=== PATIENT | male | born 1965 | race Caucasian/White ===

== ENCOUNTER 2017-04-04 00:28 | Inpatient (IN) | payer MEDICAID, OTHER ==
[~2017-04-04] VITALS: Ht 193 cm; Wt 111.1 kg
[2017-04-04 01:12] LABS: Basophils # (auto) 0 uL; Eosinophils # (auto) 0.2 uL; Monocytes # (auto) 0.5 uL
[2017-04-04 01:14] LABS: Basophils % (auto) 0.7 % (0.0-2.0); Eosinophils % (auto) 3.1 % (0.0-7.0); Hematocrit 45.8 % (41.0-53.0); Hemoglobin 16.1 g/dL (13.5-17.5); Lymphocytes # (auto) 1.9 uL; Lymphocytes % (auto) 26.7 % (10.0-50.0); Mean Corpuscular Hemoglobin 37.5 pg (28.0-32.0); Mean Corpuscular Hgb Conc. 35.3 g/dL (32.0-36.0); Mean Corpuscular Volume 106.5 fL (80.0-100.0); Monocytes % (auto) 6.5 % (0.0-12.0); Neutrophils # (auto) 4.5 uL; Nucleated Red Blood Cells % 0.4 %; Platelet Count (auto) 113 10^3/uL (140-450); Red Cell Distribution Width 15.8 % (11.8-14.3); White Blood Cell 7.1 10^3/uL (4.4-10.8)
[2017-04-04 01:30] LABS: Albumin 3.4 g/dL (3.4-5.0); Anion Gap 14 (5-15); BUN/Creatinine Ratio 3.7; Blood Urea Nitrogen 4 mg/dL (7-18); Calcium 8.8 mg/dL (8.5-10.1); Carbon Dioxide 21 mmol/L (21-32); Chloride 102 mmol/L (98-107); GFR African American 92 mL/min; GFR Non-African American 76 mL/min; Glucose 159 mg/dL (74-106); Magnesium 1.9 mg/dL (1.6-2.6); Potassium 3.3 mmol/L (3.5-5.1); Sodium 137 mmol/L (136-145)
[2017-04-04 01:35] LABS: Alanine Aminotransferase 22 U/L (16-61); Alkaline Phosphatase 147 U/L (45-117); Aspartate Aminotransferase 70 U/L (15-37); Total Protein 7.8 g/dL (6.4-8.2)
[2017-04-04] MEDS ORDERED: POTASSIUM CHL 10% (20 MEQ/15ML) 15ml ORAL SOLN PO ONE (07:45)
[2017-04-04] MEDS ORDERED: LORazepam 2MG/ML-1ML VIAL IV ONE (07:45)
[2017-04-04] MEDS ORDERED: MORPHINE SULFATE 10 MG/ML INJ 1ML SDV IV PRN ×2 (08:15)
[2017-04-04] MEDS ORDERED: TEMAZEPAM 15 MG CAP PO PRN (08:15)
[2017-04-04] MEDS ORDERED: ACETAMINOPHEN 500 MG TAB PO PRN (08:15)
[2017-04-04] MEDS ORDERED: LACTULOSE 20Gm/30ML SOLN PO PRN (08:15)
[2017-04-04] MEDS ORDERED: PROMETHAZINE HCL 25 MG/ML 1ML IV PRN (08:15)
[2017-04-04] MEDS ORDERED: LORazepam 2MG/ML-1ML VIAL IV PRN (08:15)
[2017-04-04] MEDS ORDERED: NITROGLYCERIN 0.4 MG SL TAB SL PRN (08:15)
[2017-04-04] MEDS ORDERED: HYDROcodone-ACET 5/325MG TAB PO PRN (08:15)
[2017-04-04] MEDS ORDERED: LORazepam 0.5 MG TAB PO PRN (08:15)
[2017-04-04] MEDS: SODIUM CHLORIDE 0.9% 1,000 ML IV SCH ×2 (08:39→23:18)
[2017-04-04 08:44] LABS: INR 3.51 (0.9-1.15); Prothrombin Time 38.7 sec (9.37-12.3)
[2017-04-04] MEDS: LEVETIRACETAM 500 MG TAB PO SCH ×2 (10:33→23:15)
[2017-04-04] MEDS ORDERED: chlordiazePOXIDE HCL 25 MG CAP PO PRN (12:00)
[2017-04-04] MEDS ORDERED: THIAMINE HCL 100 MG/ML 2ML VIAL IV ONE (12:00)
[2017-04-04] MEDS: chlordiazePOXIDE HCL 5 MG CAP PO SCH ×2 (12:15→18:00)
[2017-04-04] MEDS ORDERED: amLODIPine BESYLATE 5 MG TAB PO ONE (12:15)
[2017-04-04] MEDS ORDERED: LISINOPRIL 10 MG TAB PO ONE (12:15)
[2017-04-04 15:40] VITALS: BP 125/93
[2017-04-04 22:00] VITALS: BP 111/76
[2017-04-05] MEDS: chlordiazePOXIDE HCL 5 MG CAP PO SCH ×3 (00:47→12:17)
[2017-04-05 04:20] LABS: Urine Bacteria NONE SEEN /hpf (None Seen); Urine Blood Negative /uL (Negative); Urine Mucus FEW (None Seen); Urine Specific Gravity 1.023 (1.001-1.035); Urine WBC 4 /hpf (0 - 3)
[2017-04-05 04:33] LABS: Alcohol, Urine < 3.0 mg/dL (0-5); Amphetamine Screen, Urine NEGATIVE (NEGATIVE); Barbiturate Scree,Urine NEGATIVE (NEGATIVE); Benzodiazephine Screen, Urine NEGATIVE (NEGATIVE); Cannabinoid Screen, Urine POSITIVE (NEGATIVE); Cocaine Screen, Urine NEGATIVE (NEGATIVE); Opiate Scree,Urine NEGATIVE (NEGATIVE); Phencyclidine Screen, Urine NEGATIVE (NEGATIVE)
[2017-04-05 05:45] VITALS: BP 104/70
[2017-04-05 07:20] LABS: Albumin 2.9 g/dL (3.4-5.0); BUN/Creatinine Ratio 6.1; Bilirubin, Total 2.7 mg/dL (0.2-1.0); Potassium 3.7 mmol/L (3.5-5.1); Total Protein 6.8 g/dL (6.4-8.2)
[2017-04-05 08:37] VITALS: BP 117/76
[2017-04-05] MEDS ORDERED: LISINOPRIL 10 MG TAB PO SCH (10:00)
[2017-04-05] MEDS ORDERED: amLODIPine BESYLATE 5 MG TAB PO SCH (10:00)
[2017-04-05] MEDS ORDERED: THIAMINE HCL 100 MG/ML 2ML VIAL IV SCH (10:00)
[2017-04-05] MEDS: LEVETIRACETAM 500 MG TAB PO SCH (10:36)
[2017-04-05] MEDS: SODIUM CHLORIDE 0.9% 1,000 ML IV SCH (10:55)
[2017-04-05] MEDS ORDERED: THIAMINE INJ 100 MG, MULTIPLE VITAMIN 10 ML, FOLIC ACID 1 MG, MAGNESIUM SULF SDV 50% 8 ... IV SCH ×5 (12:00)
[2017-04-05 13:00] VITALS: BP_SYST 107; BP_SYST 137; BP_DIAS 72; BP_DIAS 96
[2017-04-05] MEDS ORDERED: KEP500T PO (15:04)
[2017-04-05] MEDS ORDERED: AML5T PO (15:04)
[2017-04-05] MEDS ORDERED: WARPRX PO (15:04)
[2017-04-05] MEDS ORDERED: LACT10SO3 PO (15:04)
[2017-04-05 16:24] VITALS: BP 137/96
[2017-04-05 16:56] VITALS: BP 137/96
== END 2017-04-05 16:56 | disposition home or self-care (01) | DRG 53 ==
LOC: EDBD 00:28 → ER 00:28 → TELE 00:29 → TELE-WESTW 17:19 → TELE-CENTR 18:48
PROVIDERS: ADMIT Internal Medicine; ATTEND Nurse Practitioner Acute Care
DX: G40.89 Other seizures (principal); I10 Essential (primary) hypertension; E87.6 Hypokalemia; G47.00 Insomnia, unspecified; G47.10 Hypersomnia, unspecified; F41.9 Anxiety disorder, unspecified; R73.9 Hyperglycemia, unspecified; Z79.899 Other long term (current) drug therapy; Z86.711 Personal history of pulmonary embolism; Z86.718 Personal history of other venous thrombosis and embolism; Z86.73 Personal history of transient ischemic attack (TIA), and cerebral infarction without residual deficits; Z79.01 Long term (current) use of anticoagulants; Z88.0 Allergy status to penicillin
CPT/HCPCS: 36415; 70450; 70551; 71045; 80053; 80061; 80307; 81001; 83735; 84484; 85025; 85610; 85652; 85730; 93005; 95819; 96361; 96374

== ENCOUNTER 2017-07-18 06:46 | Inpatient (IN) | payer MEDICAID, OTHER ==
[~2017-07-18] VITALS: Ht 180.3 cm; Wt 90.4 kg
[~2017-07-18 06:46] MED LIST: AML5T PO; KEP500T PO; LACT10SO3 PO; WARPRX PO
[2017-07-18] MEDS ORDERED: SODIUM CHLORIDE 0.9% 1,000 ML IV ONE ×3 (06:54→11:00)
[2017-07-18] MEDS ORDERED: MIDAZOLAM HCL 1MG/1ML-2 ML VIAL IV ONE (07:00)
[2017-07-18] MEDS ORDERED: LORazepam 2MG/ML-1ML VIAL IV ONE (07:00)
[2017-07-18] MEDS ORDERED: ADENOSINE 6 MG/2 ML INJ IV ONE ×4 (07:14→07:45)
[2017-07-18 08:04] LABS: Basophils # (auto) 0.1 uL; Basophils % (auto) 0.4 % (0.0-2.0); Eosinophils # (auto) 0.1 uL; Eosinophils % (auto) 0.5 % (0.0-7.0); Hemoglobin 15.4 g/dL (13.5-17.5); Monocytes # (auto) 0.6 uL; Nucleated Red Blood Cells % 0.3 %
[2017-07-18 08:05] LABS: Hematocrit 45.6 % (41.0-53.0); Lymphocytes # (auto) 3.5 uL; Lymphocytes % (auto) 20.2 % (10.0-50.0); Mean Corpuscular Hemoglobin 36.4 pg (28.0-32.0); Mean Corpuscular Hgb Conc. 33.9 g/dL (32.0-36.0); Mean Corpuscular Volume 107.4 fL (80.0-100.0); Monocytes % (auto) 3.3 % (0.0-12.0); Neutrophils % (auto) 75.6 % (37.0-80.0); Platelet Count (auto) 182 10^3/uL (140-450); Red Blood Cells 4.24 10^6/uL (4.5-5.90); White Blood Cell 17.2 10^3/uL (4.4-10.8)
[2017-07-18] MEDS ORDERED: LORazepam 2MG/ML-1ML VIAL IV PRN ×2 (08:15→11:00)
[2017-07-18] MEDS ORDERED: METOPROLOL TARTRATE 1MG/1ML-5ML VIAL IV ONE (08:15)
[2017-07-18] MEDS ORDERED: chlordiazePOXIDE HCL 25 MG CAP PO PRN ×2 (08:15→11:00)
[2017-07-18] MEDS ORDERED: LEVETIRACETAM INJ 1,000 MG in D5W 5% 100 ML IV ONE (08:15)
[2017-07-18 08:16] LABS: INR 1.83 (0.9-1.15); Partial Thromboplastin Time 33.6 sec (22.64-33.71); Prothrombin Time 20.1 sec (9.37-12.3)
[2017-07-18 08:19] LABS: Alanine Aminotransferase 15 U/L (16-61); Albumin 3.8 g/dL (3.4-5.0); Anion Gap 20 (5-15); Aspartate Aminotransferase 39 U/L (15-37); BUN/Creatinine Ratio 5.1; Blood Urea Nitrogen 8 mg/dL (7-18); Calcium 8.6 mg/dL (8.5-10.1); Carbon Dioxide 16 mmol/L (21-32); Chloride 101 mmol/L (98-107); GFR African American 60 mL/min; GFR Non-African American 49 mL/min; Glucose 247 mg/dL (74-106); Potassium 3.4 mmol/L (3.5-5.1); Sodium 137 mmol/L (136-145)
[2017-07-18 08:22] LABS: Lactic Acid w/Reflex 13.2 mmol/L (0.4-2.0)
[2017-07-18 08:24] LABS: Alkaline Phosphatase 123 U/L (45-117); Bilirubin, Total 2.1 mg/dL (0.2-1.0); Total Protein 8.4 g/dL (6.4-8.2)
[2017-07-18] MEDS: THIAMINE INJ 100 MG, MULTIPLE VITAMIN 10 ML, FOLIC ACID 1 MG, MAGNESIUM SULF SDV 50% 8 ... IV SCH ×5 (08:58)
[2017-07-18] MEDS: LEVETIRACETAM INJ 500 MG in D5W 5% 100 ML IV SCH ×2 (10:16→22:42)
[2017-07-18] MEDS ORDERED: MORPHINE SULFATE 4 MG/ML SYR/VIAL IV PRN ×2 (11:00)
[2017-07-18] MEDS ORDERED: ACETAMINOPHEN 500 MG TAB PO PRN (11:00)
[2017-07-18] MEDS ORDERED: HYDROcodone-ACET 5/325MG TAB PO PRN (11:00)
[2017-07-18] MEDS ORDERED: DEXTROSE (50%) 50ML SYRG IV PRN (11:00)
[2017-07-18] MEDS ORDERED: THIAMINE 100mg/ml INJ (200mg/2ml VIAL) IV ONE (11:00)
[2017-07-18] MEDS ORDERED: NITROGLYCERIN 0.4 MG SL TAB SL PRN (11:00)
[2017-07-18] MEDS ORDERED: PROMETHAZINE HCL 25 MG/ML 1ML IV PRN (11:00)
[2017-07-18] MEDS: LEVETIRACETAM 500 MG TAB PO SCH ×2 (11:03→22:00)
[2017-07-18] MEDS ORDERED: PANTOPRAZOLE 40 MG TAB PO SCH (11:03)
[2017-07-18] MEDS: amLODIPine BESYLATE 5 MG TAB PO SCH (11:03)
[2017-07-18] MEDS: LACTULOSE 20Gm/30ML SOLN PO SCH (11:27)
[2017-07-18 11:30] LABS: Amylase 59 U/L (25-115); Lipase 138 U/L (73-393)
[2017-07-18] MEDS: POTASSIUM CHL 20MEQ/100ML 100 ML IV SCH ×2 (11:49→13:36)
[2017-07-18] MEDS: SOD CHL 0.9%/ KCL 20MEQ 1,000 ML IV SCH ×2 (11:49→20:26)
[2017-07-18] MEDS: ACCU-CHEK COMFORT CURVE STRIP VI SCH ×3 (12:00→20:30)
[2017-07-18] MEDS: InsuLIN REG 1unit/0.01ml Soln (100units/ml) SC SCH ×3 (12:00→20:30)
[2017-07-18] MEDS: chlordiazePOXIDE HCL 5 MG CAP PO SCH ×2 (12:00→18:16)
[2017-07-18] MEDS ORDERED: LABETALOL HCL 5 MG/ML ML 20ML VIAL IV PRN (12:30)
[2017-07-18] MEDS ORDERED: PANTOPRAZOLE 40 MG/10 ML VIAL IV ONE (13:00)
[2017-07-18] MEDS ORDERED: WARFARIN SODIUM 5 MG TAB PO ONE (17:00)
[2017-07-19] MEDS: chlordiazePOXIDE HCL 5 MG CAP PO SCH ×5 (00:27→23:28)
[2017-07-19] MEDS: ACCU-CHEK COMFORT CURVE STRIP VI SCH ×7 (00:47→23:29)
[2017-07-19] MEDS: InsuLIN REG 1unit/0.01ml Soln (100units/ml) SC SCH ×7 (00:47→23:33)
[2017-07-19] MEDS: SOD CHL 0.9%/ KCL 20MEQ 1,000 ML IV SCH ×3 (03:58→19:41)
[2017-07-19 05:54] LABS: Albumin 3.3 g/dL (3.4-5.0); BUN/Creatinine Ratio 7.1; Bilirubin, Total 2.5 mg/dL (0.2-1.0); Calcium 8.6 mg/dL (8.5-10.1); Potassium 4.3 mmol/L (3.5-5.1); Total Protein 7.2 g/dL (6.4-8.2)
[2017-07-19 05:55] LABS: INR 1.75 (0.9-1.15); Partial Thromboplastin Time 35.3 sec (22.64-33.71); Prothrombin Time 19.2 sec (9.37-12.3)
[2017-07-19 06:54] LABS: Basophils # (auto) 0 uL; Basophils % (auto) 0.1 % (0.0-2.0); Eosinophils # (auto) 0 uL; Hematocrit 37.5 % (41.0-53.0); Hemoglobin 13.2 g/dL (13.5-17.5); Mean Corpuscular Hgb Conc. 35.1 g/dL (32.0-36.0); Mean Corpuscular Volume 104.6 fL (80.0-100.0); Monocytes # (auto) 0.8 uL; Neutrophils # (auto) 6.6 uL; Nucleated Red Blood Cells % 0.1 %; Red Blood Cells 3.59 10^6/uL (4.5-5.90)
[2017-07-19 06:57] LABS: Lymphocytes # (auto) 0.9 uL; Lymphocytes % (auto) 11.1 % (10.0-50.0); Mean Corpuscular Hemoglobin 36.7 pg (28.0-32.0); Monocytes % (auto) 9.5 % (0.0-12.0); Neutrophils % (auto) 79.3 % (37.0-80.0); Red Cell Distribution Width 15.6 % (11.8-14.3); White Blood Cell 8.3 10^3/uL (4.4-10.8)
[2017-07-19 07:12] LABS: Platelet Count (auto) 63 10^3/uL (140-450)
[2017-07-19] MEDS: LACTULOSE 20Gm/30ML SOLN PO SCH (10:00)
[2017-07-19] MEDS: amLODIPine BESYLATE 5 MG TAB PO SCH (10:00)
[2017-07-19] MEDS: PANTOPRAZOLE 40 MG/10 ML VIAL IV SCH (10:28)
[2017-07-19] MEDS: THIAMINE 100mg/ml INJ (200mg/2ml VIAL) IV SCH (10:28)
[2017-07-19] MEDS: LEVETIRACETAM 500 MG TAB PO SCH ×2 (10:28→21:32)
[2017-07-19] MEDS: LEVETIRACETAM INJ 500 MG in D5W 5% 100 ML IV SCH (10:38)
[2017-07-19] MEDS: THIAMINE INJ 100 MG, MULTIPLE VITAMIN 10 ML, FOLIC ACID 1 MG, MAGNESIUM SULF SDV 50% 8 ... IV SCH ×5 (12:13)
[2017-07-19] MEDS: METOPROLOL TARTRATE 25 MG TAB PO SCH ×2 (14:00→21:31)
[2017-07-19 17:00] VITALS: BP 153/92
[2017-07-19] MEDS ORDERED: WARFARIN SODIUM 5 MG TAB PO ONE (17:00)
[2017-07-19] MEDS ORDERED: CITA-77 PO (18:25)
[2017-07-19] MEDS ORDERED: LISI10TA6 PO (18:25)
[2017-07-19 20:46] LABS: Urine Bacteria NONE SEEN /hpf (None Seen); Urine Blood Negative /uL (Negative); Urine Specific Gravity 1.007 (1.001-1.035); Urine WBC 1 /hpf (0 - 3)
[2017-07-19 20:58] LABS: Alcohol, Urine < 3.0 mg/dL (0-5); Amphetamine Screen, Urine NEGATIVE (NEGATIVE); Barbiturate Scree,Urine NEGATIVE (NEGATIVE); Benzodiazephine Screen, Urine POSITIVE (NEGATIVE); Cannabinoid Screen, Urine POSITIVE (NEGATIVE); Cocaine Screen, Urine NEGATIVE (NEGATIVE); Opiate Scree,Urine NEGATIVE (NEGATIVE); Phencyclidine Screen, Urine NEGATIVE (NEGATIVE)
[2017-07-19 22:23] VITALS: BP 139/96
[2017-07-20] MEDS: InsuLIN REG 1unit/0.01ml Soln (100units/ml) SC SCH ×3 (04:00→12:00)
[2017-07-20] MEDS: SOD CHL 0.9%/ KCL 20MEQ 1,000 ML IV SCH ×2 (04:18→13:00)
[2017-07-20] MEDS: ACCU-CHEK COMFORT CURVE STRIP VI SCH ×3 (04:18→12:22)
[2017-07-20 05:11] VITALS: BP 131/96
[2017-07-20] MEDS: chlordiazePOXIDE HCL 5 MG CAP PO SCH ×2 (05:52→12:16)
[2017-07-20 06:27] LABS: Basophils # (auto) 0 uL; Eosinophils # (auto) 0 uL; Hemoglobin 12.5 g/dL (13.5-17.5); Lymphocytes # (auto) 1.4 uL; Monocytes # (auto) 0.5 uL; Neutrophils # (auto) 3.3 uL; White Blood Cell 5.3 10^3/uL (4.4-10.8)
[2017-07-20 06:31] LABS: Basophils % (auto) 0.1 % (0.0-2.0); Eosinophils % (auto) 0.5 % (0.0-7.0); Hematocrit 35.3 % (41.0-53.0); Mean Corpuscular Hgb Conc. 35.4 g/dL (32.0-36.0); Mean Corpuscular Volume 104.4 fL (80.0-100.0); Monocytes % (auto) 9.8 % (0.0-12.0); Neutrophils % (auto) 63.6 % (37.0-80.0); Nucleated Red Blood Cells % 0.3 %; Platelet Count (auto) 57 10^3/uL (140-450); Red Blood Cells 3.38 10^6/uL (4.5-5.90); Red Cell Distribution Width 15.5 % (11.8-14.3)
[2017-07-20 06:41] LABS: INR 1.59 (0.9-1.15); Partial Thromboplastin Time 33.1 sec (22.64-33.71); Prothrombin Time 17.4 sec (9.37-12.3)
[2017-07-20 06:50] LABS: Potassium 3.8 mmol/L (3.5-5.1)
[2017-07-20 06:58] LABS: Albumin 2.7 g/dL (3.4-5.0); BUN/Creatinine Ratio 9.7; Calcium 8.1 mg/dL (8.5-10.1)
[2017-07-20 07:00] LABS: Bilirubin, Total 2.6 mg/dL (0.2-1.0); Total Protein 6.5 g/dL (6.4-8.2)
[2017-07-20 08:00] VITALS: BP 128/85
[2017-07-20 08:30] VITALS: BP 125/87
[2017-07-20] MEDS: METOPROLOL TARTRATE 25 MG TAB PO SCH (09:02)
[2017-07-20] MEDS: amLODIPine BESYLATE 5 MG TAB PO SCH (09:04)
[2017-07-20] MEDS: LEVETIRACETAM 500 MG TAB PO SCH (09:05)
[2017-07-20] MEDS: PANTOPRAZOLE 40 MG/10 ML VIAL IV SCH (09:06)
[2017-07-20] MEDS: THIAMINE 100mg/ml INJ (200mg/2ml VIAL) IV SCH (09:07)
[2017-07-20] MEDS: LACTULOSE 20Gm/30ML SOLN PO SCH (10:00)
[2017-07-20] MEDS: THIAMINE INJ 100 MG, MULTIPLE VITAMIN 10 ML, FOLIC ACID 1 MG, MAGNESIUM SULF SDV 50% 8 ... IV SCH ×5 (12:00)
[2017-07-20 12:27] VITALS: BP 142/93
[2017-07-20 12:30] VITALS: BP 142/93
[2017-07-20] MEDS ORDERED: WARFARIN SODIUM 2 MG TAB PO ONE (17:00)
== END 2017-07-20 13:15 | disposition home or self-care (01) | DRG 775 ==
LOC: EDBD 06:46 → ER 06:52 → TELE 06:53 → TELE-EAST 07-19 15:14
PROVIDERS: ADMIT Internal Medicine; ATTEND Internal Medicine
DX: F10.239 Alcohol dependence with withdrawal, unspecified (principal); N17.9 Acute kidney failure, unspecified; K76.0 Fatty (change of) liver, not elsewhere classified; I69.354 Hemiplegia and hemiparesis following cerebral infarction affecting left non-dominant side; E11.65 Type 2 diabetes mellitus with hyperglycemia; I10 Essential (primary) hypertension; D50.9 Iron deficiency anemia, unspecified; F12.90 Cannabis use, unspecified, uncomplicated; G40.401 Other generalized epilepsy and epileptic syndromes, not intractable, with status epilepticus; E87.6 Hypokalemia; F41.9 Anxiety disorder, unspecified; G47.00 Insomnia, unspecified; G47.10 Hypersomnia, unspecified; H57.02 Anisocoria; Z79.01 Long term (current) use of anticoagulants; Z79.899 Other long term (current) drug therapy; Z86.711 Personal history of pulmonary embolism; Z86.718 Personal history of other venous thrombosis and embolism; Z91.14 Patient's other noncompliance with medication regimen; Z87.81 Personal history of (healed) traumatic fracture; Z88.0 Allergy status to penicillin
CPT/HCPCS: 36415; 70450; 70547; 71045; 71250; 74176; 76705; 80053; 80307; 81001; 82150; 82962; 83036; 83605; 83690; 83880; 84443; 84484; 85025; 85610; 85652; 85730; 87040; 87077; 87147; 87186; 93005; 95819; 96361; 96365; 96375; C9113; J0153; J1815; J3480; J7060

== ENCOUNTER → 2018-01-27 | Outpatient (CLI) | payer MEDICARE, MEDICAID ==
[~2018-01-27] MED LIST changes: +CITA-77 PO; +LISI10TA6 PO
[2018-01-27 09:51] LABS: Basophils # (auto) 0 uL; Eosinophils # (auto) 0.2 uL; Neutrophils # (auto) 3.3 uL; Nucleated Red Blood Cells % 0.1 %
[2018-01-27 09:53] LABS: Basophils % (auto) 0.6 % (0.0-2.0); Eosinophils % (auto) 3.1 % (0.0-7.0); Hematocrit 45.8 % (41.0-53.0); Lymphocytes % (auto) 33.8 % (10.0-50.0); Mean Corpuscular Hemoglobin 35.9 pg (28.0-32.0); Mean Corpuscular Volume 102.6 fL (80.0-100.0); Monocytes # (auto) 0.4 uL; Monocytes % (auto) 6.1 % (0.0-12.0); Neutrophils % (auto) 56.4 % (37.0-80.0); Platelet Count (auto) 129 10^3/uL (140-450); Red Blood Cells 4.47 10^6/uL (4.5-5.90); Red Cell Distribution Width 15.9 % (11.8-14.3); White Blood Cell 5.8 10^3/uL (4.4-10.8)
[2018-01-27 10:05] LABS: Urine Bacteria NONE SEEN /hpf (None Seen); Urine Blood Negative /uL (Negative); Urine Specific Gravity 1.018 (1.001-1.035); Urine WBC <1 /hpf (0 - 3)
[2018-01-27 10:41] LABS: Albumin 3.8 g/dL (3.4-5.0); Calcium 8.7 mg/dL (8.5-10.1); Potassium 4.6 mmol/L (3.5-5.1)
[2018-01-27 10:46] LABS: BUN/Creatinine Ratio 8.2; Bilirubin, Total 0.8 mg/dL (0.2-1.0)
== END | disposition home or self-care (01) ==
LOC: LAB 09:27
PROVIDERS: ATTEND Nurse Practitioner
DX: E78.5 Hyperlipidemia, unspecified (principal)
CPT/HCPCS: 36415; 80053; 80061; 81001; 84443; 85025

== ENCOUNTER → 2020-01-11 | Outpatient (CLI) | payer MEDICARE, MEDICAID ==
[~2020-01-11] MED LIST changes: +LISI-648 PO; -LISI10TA6 PO; +WARF-196 PO; -WARPRX PO
[2020-01-11 09:05] LABS: Basophils # (auto) 0 10 ^3/uL (0-0.2); Basophils % (auto) 0.8 % (0.0-2.0); Eosinophils # (auto) 0.1 10 ^3/uL (0-0.8); Eosinophils % (auto) 2.1 % (0.0-7.0); Hematocrit 38.3 % (41.0-53.0); Hemoglobin 12.8 g/dL (13.5-17.5); Lymphocytes # (auto) 1.4 10 ^3/uL (0.4-5.4); Lymphocytes % (auto) 28.1 % (10.0-50.0); Mean Corpuscular Hemoglobin 29.9 pg (28.0-32.0); Mean Corpuscular Hgb Conc. 33.3 g/dL (32.0-36.0); Mean Corpuscular Volume 89.9 fL (80.0-100.0); Monocytes # (auto) 0.3 10 ^3/uL (0-1.3); Monocytes % (auto) 7.1 % (0.0-12.0); Neutrophils % (auto) 61.9 % (37.0-80.0); Nucleated Red Blood Cells % 0.1 %; Platelet Count (auto) 166 10^3/uL (140-450); Red Blood Cells 4.26 10^6/uL (4.5-5.90); Red Cell Distribution Width 16.3 % (11.8-14.3); White Blood Cell 4.9 10^3/uL (4.4-10.8)
[2020-01-11 09:34] LABS: Urine Bacteria NONE SEEN /hpf (None Seen); Urine Blood Negative /uL (Negative); Urine Mucus FEW (None Seen); Urine Specific Gravity 1.026 (1.001-1.035); Urine WBC 1 /hpf (0 - 3)
[2020-01-11 09:41] LABS: Albumin 3.6 g/dL (3.4-5.0); Calcium 8.7 mg/dL (8.5-10.1); Potassium 3.8 mmol/L (3.5-5.1)
[2020-01-11 09:45] LABS: BUN/Creatinine Ratio 6.6; Bilirubin, Total 0.8 mg/dL (0.2-1.0); Total Protein 7.9 g/dL (6.4-8.2)
== END | disposition home or self-care (01) ==
LOC: LAB 08:36
PROVIDERS: ATTEND Nurse Practitioner
DX: I10 Essential (primary) hypertension (principal); E78.5 Hyperlipidemia, unspecified; R56.9 Unspecified convulsions
CPT/HCPCS: 36415; 80053; 80061; 81001; 85025

== ENCOUNTER → 2020-10-17 | Outpatient (CLI) | payer MEDICARE, OTHER ==
[~2020-10-17] MED LIST changes: -LISI-648 PO; +LISI-716 PO
[2020-10-17 09:56] LABS: Urine Bacteria NONE SEEN /hpf (None Seen); Urine Blood Negative /uL (Negative); Urine Specific Gravity 1.018 (1.001-1.035); Urine WBC <1 /hpf (0 - 3)
[2020-10-17 10:07] LABS: Basophils # (auto) 0 10 ^3/uL (0-0.2); Basophils % (auto) 0.9 % (0.0-2.0); Eosinophils # (auto) 0.2 10 ^3/uL (0-0.8); Eosinophils % (auto) 3.3 % (0.0-7.0); Hematocrit 38.8 % (41.0-53.0); Hemoglobin 13.4 g/dL (13.5-17.5); Lymphocytes # (auto) 1.9 10 ^3/uL (0.4-5.4); Lymphocytes % (auto) 36.3 % (10.0-50.0); Mean Corpuscular Hemoglobin 27.8 pg (28.0-32.0); Mean Corpuscular Hgb Conc. 34.4 g/dL (32.0-36.0); Mean Corpuscular Volume 80.8 fL (80.0-100.0); Monocytes # (auto) 0.3 10 ^3/uL (0-1.3); Monocytes % (auto) 6.4 % (0.0-12.0); Neutrophils # (auto) 2.8 10 ^3/uL (1.6-8.6); Neutrophils % (auto) 53.1 % (37.0-80.0); Red Blood Cells 4.81 10^6/uL (4.5-5.90); Red Cell Distribution Width 17.5 % (11.8-14.3); White Blood Cell 5.3 10^3/uL (4.4-10.8)
[2020-10-17 10:18] LABS: Albumin 3.6 g/dL (3.4-5.0); Calcium 8.7 mg/dL (8.5-10.1); Potassium 4.4 mmol/L (3.5-5.1)
[2020-10-17 10:25] LABS: Bilirubin, Total 0.3 mg/dL (0.2-1.0); Total Protein 8.2 g/dL (6.4-8.2)
== END | disposition home or self-care (01) ==
LOC: LAB 09:33
PROVIDERS: ATTEND Nurse Practitioner
DX: I10 Essential (primary) hypertension (principal); E78.5 Hyperlipidemia, unspecified; R73.9 Hyperglycemia, unspecified
CPT/HCPCS: 36415; 80053; 80061; 81001; 83036; 85025

== ENCOUNTER → 2021-02-06 | Outpatient (CLI) | payer OTHER ==
[2021-02-06 10:10] LABS: Albumin 3.7 g/dL (3.4-5.0); Calcium 8.5 mg/dL (8.5-10.1); Potassium 4.2 mmol/L (3.5-5.1)
[2021-02-06 10:14] LABS: BUN/Creatinine Ratio 7.8; Bilirubin, Total 0.5 mg/dL (0.2-1.0); Total Protein 8.5 g/dL (6.4-8.2)
== END | disposition home or self-care (01) ==
LOC: LAB 09:22
PROVIDERS: ATTEND Internal Medicine
DX: I10 Essential (primary) hypertension (principal)
CPT/HCPCS: 36415; 80053

== ENCOUNTER → 2021-04-10 | Outpatient (CLI) | payer OTHER ==
[2021-04-10 09:27] LABS: Basophils # (auto) 0 10 ^3/uL (0-0.2); Eosinophils # (auto) 0.2 10 ^3/uL (0-0.8); Hemoglobin 12.1 g/dL (13.5-17.5); Lymphocytes # (auto) 1.5 10 ^3/uL (0.4-5.4); Mean Corpuscular Hemoglobin 26.5 pg (28.0-32.0); Monocytes # (auto) 0.4 10 ^3/uL (0-1.3); Neutrophils # (auto) 2.7 10 ^3/uL (1.6-8.6); White Blood Cell 4.8 10^3/uL (4.4-10.8)
[2021-04-10 09:29] LABS: Basophils % (auto) 0.5 % (0.0-2.0); Eosinophils % (auto) 4.1 % (0.0-7.0); Hematocrit 36.8 % (41.0-53.0); Lymphocytes % (auto) 31.4 % (10.0-50.0); Mean Corpuscular Hgb Conc. 32.8 g/dL (32.0-36.0); Mean Corpuscular Volume 80.6 fL (80.0-100.0); Monocytes % (auto) 8.2 % (0.0-12.0); Neutrophils % (auto) 55.8 % (37.0-80.0); Red Blood Cells 4.56 10^6/uL (4.5-5.90); Red Cell Distribution Width 15.6 % (11.8-14.3); Urine Bacteria NONE SEEN /hpf (None Seen); Urine Blood Negative /uL (Negative); Urine Mucus FEW (None Seen); Urine Specific Gravity 1.026 (1.001-1.035); Urine WBC <1 /hpf (0 - 3)
[2021-04-10 10:24] LABS: Potassium 4.2 mmol/L (3.5-5.1)
[2021-04-10 10:43] LABS: Albumin 3.7 g/dL (3.4-5.0); BUN/Creatinine Ratio 9.2; Bilirubin, Total 0.4 mg/dL (0.2-1.0); Calcium 8.9 mg/dL (8.5-10.1); Total Protein 8.3 g/dL (6.4-8.2)
== END | disposition home or self-care (01) ==
LOC: LAB 08:39
PROVIDERS: ATTEND Nurse Practitioner
DX: E78.5 Hyperlipidemia, unspecified (principal); I10 Essential (primary) hypertension
CPT/HCPCS: 36415; 80053; 80061; 81001; 85025

== ENCOUNTER → 2021-11-21 | Outpatient (CLI) | payer OTHER ==
[~2021-11-21] VITALS: Ht 180.3 cm; Wt 88.5 kg
[~2021-11-21] MED LIST changes: +ADENOSINE 74 MG in GIVE UN-DILUTED 0 ML IV STA
[2021-11-21 08:33] VITALS: BP 112/69
== END | disposition home or self-care (01) ==
LOC: XYW 07:13
PROVIDERS: ATTEND Internal Medicine
DX: I70.0 Atherosclerosis of aorta (principal); I50.30 Unspecified diastolic (congestive) heart failure; R07.89 Other chest pain; D68.69 Other thrombophilia; R10.13 Epigastric pain
CPT/HCPCS: 78452; 93017; A9500; J0153

== ENCOUNTER → 2021-12-25 | Outpatient (CLI) | payer OTHER ==
[~2021-12-25] MED LIST changes: -ADENOSINE 74 MG in GIVE UN-DILUTED 0 ML IV STA
[2021-12-25 08:08] LABS: Basophils # (auto) 0 10 ^3/uL (0-0.2); Basophils % (auto) 0.9 % (0.0-2.0); Eosinophils # (auto) 0.2 10 ^3/uL (0-0.8); Eosinophils % (auto) 3.3 % (0.0-7.0); Hematocrit 39.4 % (41.0-53.0); Hemoglobin 12.7 g/dL (13.5-17.5); Lymphocytes # (auto) 1.7 10 ^3/uL (0.4-5.4); Lymphocytes % (auto) 32.6 % (10.0-50.0); Mean Corpuscular Hemoglobin 26.2 pg (28.0-32.0); Mean Corpuscular Hgb Conc. 32.1 g/dL (32.0-36.0); Mean Corpuscular Volume 81.7 fL (80.0-100.0); Monocytes # (auto) 0.3 10 ^3/uL (0-1.3); Monocytes % (auto) 6.2 % (0.0-12.0); Red Blood Cells 4.83 10^6/uL (4.5-5.90); Red Cell Distribution Width 18.8 % (11.8-14.3); White Blood Cell 5.3 10^3/uL (4.4-10.8)
[2021-12-25 08:26] LABS: Urine Bacteria NONE SEEN /hpf (None Seen); Urine Blood TRACE /uL (Negative); Urine Specific Gravity 1.016 (1.001-1.035); Urine WBC 1 /hpf (0 - 3)
[2021-12-25 09:22] LABS: Albumin 3.6 g/dL (3.4-5.0); Calcium 8.9 mg/dL (8.5-10.1); Potassium 4.7 mmol/L (3.5-5.1)
[2021-12-25 09:26] LABS: BUN/Creatinine Ratio 8.9; Bilirubin, Total 0.3 mg/dL (0.2-1.0); Total Protein 8.6 g/dL (6.4-8.2)
== END | disposition home or self-care (01) ==
LOC: LAB 07:52
PROVIDERS: ATTEND Nurse Practitioner
DX: I10 Essential (primary) hypertension (principal); E78.5 Hyperlipidemia, unspecified
CPT/HCPCS: 36415; 80053; 80061; 81001; 85025

== ENCOUNTER → 2022-07-09 | Outpatient (CLI) | payer OTHER ==
[2022-07-09 09:05] LABS: Basophils # (auto) 0.1 10 ^3/uL (0-0.2); Basophils % (auto) 1.3 % (0.0-2.0); Eosinophils # (auto) 0.3 10 ^3/uL (0-0.8); Eosinophils % (auto) 5.1 % (0.0-7.0); Hematocrit 39.4 % (41.0-53.0); Lymphocytes # (auto) 1.4 10 ^3/uL (0.4-5.4); Mean Corpuscular Hemoglobin 27.6 pg (28.0-32.0); Mean Corpuscular Hgb Conc. 32.9 g/dL (32.0-36.0); Mean Corpuscular Volume 83.7 fL (80.0-100.0); Monocytes # (auto) 0.4 10 ^3/uL (0-1.3); Neutrophils % (auto) 64.6 % (37.0-80.0); Nucleated Red Blood Cells % 0.2 %; Red Blood Cells 4.71 10^6/uL (4.5-5.90); Red Cell Distribution Width 15.6 % (11.8-14.3); White Blood Cell 6.2 10^3/uL (4.4-10.8)
[2022-07-09 09:18] LABS: Urine Bacteria NONE SEEN /hpf (None Seen); Urine Blood Negative /uL (Negative); Urine Mucus FEW (None Seen); Urine Specific Gravity 1.024 (1.001-1.035); Urine WBC 1 /hpf (0 - 3)
[2022-07-09 09:39] LABS: Potassium 3.9 mmol/L (3.5-5.1)
[2022-07-09 09:52] LABS: Albumin 3.8 g/dL (3.4-5.0); BUN/Creatinine Ratio 9.2 (10.0-20.0); Bilirubin, Total 0.7 mg/dL (0.2-1.0); Calcium 8.7 mg/dL (8.5-10.1); Total Protein 8.6 g/dL (6.4-8.2)
== END | disposition home or self-care (01) ==
LOC: LAB 08:47
PROVIDERS: ATTEND Nurse Practitioner
DX: I10 Essential (primary) hypertension (principal); E78.5 Hyperlipidemia, unspecified
CPT/HCPCS: 36415; 80053; 80061; 81001; 84153; 84443; 85025

== ENCOUNTER → 2023-04-03 | Outpatient (CLI) | payer MEDICAID ==
[~2023-04-03] MED LIST changes: -LISI-716 PO; +LISI10TA34 PO
[2023-04-03 08:31] LABS: Urine Epithelial Cast None Seen /hpf (<5)
[2023-04-03 08:33] LABS: Basophils # (auto) 0 10 ^3/uL (0-0.2); Basophils % (auto) 0.4 % (0.0-2.0); Eosinophils # (auto) 0.1 10 ^3/uL (0-0.8); Eosinophils % (auto) 0.7 % (0.0-7.0); Hematocrit 43.3 % (41.0-53.0); Hemoglobin 14.4 g/dL (13.5-17.5); Lymphocytes # (auto) 1.7 10 ^3/uL (0.4-5.4); Lymphocytes % (auto) 19.2 % (10.0-50.0); Mean Corpuscular Hemoglobin 30.4 pg (28.0-32.0); Mean Corpuscular Hgb Conc. 33.4 g/dL (32.0-36.0); Mean Corpuscular Volume 91.2 fL (80.0-100.0); Monocytes # (auto) 0.7 10 ^3/uL (0-1.3); Monocytes % (auto) 7.6 % (0.0-12.0); Neutrophils # (auto) 6.3 10 ^3/uL (1.6-8.6); Neutrophils % (auto) 72.1 % (37.0-80.0); Red Blood Cells 4.75 10^6/uL (4.5-5.90); Red Cell Distribution Width 17.1 % (11.8-14.3); White Blood Cell 8.7 10^3/uL (4.4-10.8)
[2023-04-03 08:59] LABS: Urine Bacteria NONE SEEN /hpf (None Seen); Urine Blood Negative /uL (Negative); Urine Clarity Clear (Clear); Urine Color Yellow (Yellow); Urine Protein, UAD 1+ (Negative); Urine Specific Gravity 1.048 (1.001-1.035); Urine WBC 2 /hpf (0 - 3); Urine pH 5.5 (5.0-8.0)
[2023-04-03 09:25] LABS: Alkaline Phosphatase 90 U/L (46-116); Anion Gap 6 (5-15); Aspartate Aminotransferase 17 U/L (13-40); Calcium 9.5 mg/dL (8.5-10.1); Carbon Dioxide 25 mmol/L (20-30); Chloride 105 mmol/L (98-107); Glucose 92 mg/dL (74-106); Potassium 4.5 mmol/L (3.5-5.1); Sodium 136 mmol/L (136-145)
[2023-04-03 09:26] LABS: LDL Cholesterol 97 mg/dL (< 100); Triglycerides 225 mg/dL (< 150)
[2023-04-03 09:27] LABS: Albumin 4.7 g/dL (3.2-4.8)
[2023-04-03 09:28] LABS: Bilirubin, Total 1.1 mg/dL (0.2-1.0); Cholesterol 173 mg/dL (< 200); HDL Cholesterol 39 mg/dL (40-59)
[2023-04-03 09:29] LABS: Alanine Aminotransferase < 9 U/L (7-40)
[2023-04-03 10:19] LABS: BUN/Creatinine Ratio 9.1 (10.0-20.0); Blood Urea Nitrogen 9 mg/dL (9-23)
== END | disposition home or self-care (01) ==
LOC: LAB 08:18
PROVIDERS: ATTEND Nurse Practitioner
DX: I10 Essential (primary) hypertension (principal); E78.5 Hyperlipidemia, unspecified; R73.9 Hyperglycemia, unspecified
CPT/HCPCS: 36415; 80053; 80061; 81001; 83036; 84153; 84443; 85025

== ENCOUNTER → 2023-09-24 | Outpatient (CLI) | payer MEDICAID ==
[2023-09-24 08:15] LABS: Albumin 4.4 g/dL (3.2-4.8); Alkaline Phosphatase 79 U/L (46-116); Anion Gap 5 (5-15); Aspartate Aminotransferase 12 U/L (13-40); BUN/Creatinine Ratio 9.6 (10.0-20.0); Bilirubin, Total 0.9 mg/dL (0.2-1.0); Blood Urea Nitrogen 9 mg/dL (9-23); Calcium 9.3 mg/dL (8.7-10.4); Carbon Dioxide 24 mmol/L (20-30); Chloride 106 mmol/L (98-107); Cholesterol 193 mg/dL (< 200); Glucose 96 mg/dL (74-106); HDL Cholesterol 43 mg/dL (40-59); LDL Cholesterol 134 mg/dL (< 100); Sodium 135 mmol/L (136-145); Total Protein 8.2 g/dL (5.7-8.2); Triglycerides 180 mg/dL (< 150)
[2023-09-24 08:19] LABS: Alanine Aminotransferase < 9 U/L (7-40)
== END | disposition home or self-care (01) ==
LOC: LAB 07:12
PROVIDERS: ATTEND Nurse Practitioner
DX: E78.5 Hyperlipidemia, unspecified (principal)
CPT/HCPCS: 36415; 80053; 80061

== ENCOUNTER → 2024-03-23 | Outpatient (CLI) | payer MEDICAID ==
[2024-03-23 08:24] LABS: Basophils # (auto) 0 10 ^3/uL (0-0.2); Basophils % (auto) 0.8 % (0.0-2.0); Eosinophils # (auto) 0.2 10 ^3/uL (0-0.8); Eosinophils % (auto) 3.7 % (0.0-7.0); Hematocrit 42.2 % (41.0-53.0); Hemoglobin 14.4 g/dL (13.5-17.5); Lymphocytes # (auto) 1.9 10 ^3/uL (0.4-5.4); Mean Corpuscular Hemoglobin 31.7 pg (28.0-32.0); Mean Corpuscular Hgb Conc. 34.2 g/dL (32.0-36.0); Mean Corpuscular Volume 92.6 fL (80.0-100.0); Monocytes # (auto) 0.4 10 ^3/uL (0-1.3); Monocytes % (auto) 7.5 % (0.0-12.0); Neutrophils # (auto) 3.2 10 ^3/uL (1.6-8.6); Nucleated Red Blood Cells % 0.1 %; Platelet Count (auto) 156 10^3/uL (140-450); Red Blood Cells 4.55 10^6/uL (4.5-5.90); White Blood Cell 5.8 10^3/uL (4.4-10.8)
[2024-03-23 09:05] LABS: Albumin 4.2 g/dL (3.2-4.8); Alkaline Phosphatase 92 U/L (46-116); Anion Gap 6 (5-15); Aspartate Aminotransferase 14 U/L (13-40); BUN/Creatinine Ratio 6.9 (10.0-20.0); Calcium 9.4 mg/dL (8.7-10.4); Carbon Dioxide 27 mmol/L (20-31); Chloride 105 mmol/L (98-107); Glucose 91 mg/dL (74-106); Potassium 4.6 mmol/L (3.5-5.1); Sodium 138 mmol/L (136-145)
[2024-03-23 09:06] LABS: Bilirubin, Total 0.4 mg/dL (0.2-1.0)
[2024-03-23 09:07] LABS: Alanine Aminotransferase < 9 U/L (7-40); Blood Urea Nitrogen 7 mg/dL (9-23)
== END | disposition home or self-care (01) ==
LOC: LAB 07:46
PROVIDERS: ATTEND Psychiatry & Neurology Neurology
DX: R56.9 Unspecified convulsions (principal)
CPT/HCPCS: 36415; 80053; 85025

== ENCOUNTER 2024-08-28 07:24 | Outpatient (CLI) | payer MEDICAID | END 2024-08-28 17:00 | disposition home or self-care (01) | LOC: LAB 07:24 | PROVIDERS: ATTEND Internal Medicine | DX: Z12.11 Encounter for screening for malignant neoplasm of colon (principal) | CPT/HCPCS: 82270 ==

== ENCOUNTER 2024-09-21 07:29 | Outpatient (CLI) | payer MEDICAID ==
[2024-09-21 08:04] LABS: Hematocrit 46.4 % (41.0-53.0); Hemoglobin 15.8 g/dL (13.5-17.5); Mean Corpuscular Hemoglobin 31.2 pg (28.0-32.0); Mean Corpuscular Volume 91.3 fL (80.0-100.0); Nucleated Red Blood Cells % 0.1 %
[2024-09-21 08:16] LABS: Urine Protein, UAD Negative (Negative)
[2024-09-21 08:51] LABS: Albumin 4.4 g/dL (3.2-4.8); Alkaline Phosphatase 103 U/L (46-116); Anion Gap 6 (5-15); BUN/Creatinine Ratio 8.1 (10.0-20.0); Calcium 10.0 mg/dL (8.7-10.4); Carbon Dioxide 25 mmol/L (20-31); Chloride 103 mmol/L (98-107); Glucose 104 mg/dL (74-106); Potassium 4.3 mmol/L (3.5-5.1)
[2024-09-21 08:52] LABS: Bilirubin, Total 0.3 mg/dL (0.2-1.0)
[2024-09-21 08:56] LABS: Alanine Aminotransferase < 9 U/L (7-40); Blood Urea Nitrogen 8 mg/dL (9-23); Cholesterol 212 mg/dL (< 200); HDL Cholesterol 38 mg/dL (40-59); Sodium 134 mmol/L (136-145); Total Protein 8.3 g/dL (5.7-8.2); Triglycerides 297 mg/dL (< 150)
== END 2024-09-21 17:00 | disposition home or self-care (01) ==
LOC: LAB 07:29
PROVIDERS: ATTEND Nurse Practitioner
DX: I10 Essential (primary) hypertension (principal); E78.5 Hyperlipidemia, unspecified; R73.9 Hyperglycemia, unspecified
CPT/HCPCS: 36415; 80053; 80061; 81001; 83036; 84153; 84443; 85025

== ENCOUNTER 2025-01-12 09:44 | Outpatient (CLI) | payer MEDICAID ==
[2025-01-12 10:12] LABS: Hematocrit 38.7 % (41.0-53.0); Hemoglobin 13.7 g/dL (13.5-17.5); Mean Corpuscular Hemoglobin 33.0 pg (28.0-32.0); Mean Corpuscular Volume 93.3 fL (80.0-100.0); Nucleated Red Blood Cells % 0.0 %
[2025-01-12 10:25] LABS: Alanine Aminotransferase 25 U/L (7-40); Alkaline Phosphatase 99 U/L (46-116); Carbon Dioxide 28 mmol/L (20-31); Chloride 105 mmol/L (98-107); Glucose 100 mg/dL (74-106); Potassium 4.1 mmol/L (3.5-5.1); Sodium 139 mmol/L (136-145)
[2025-01-12 10:26] LABS: Albumin 4.1 g/dL (3.2-4.8); Anion Gap 6 (5-15); Bilirubin, Total 0.4 mg/dL (0.2-1.0); Cholesterol 169 mg/dL (< 200); Total Protein 8.2 g/dL (5.7-8.2)
[2025-01-12 10:27] LABS: BUN/Creatinine Ratio 5.6 (10.0-20.0); Blood Urea Nitrogen < 5 mg/dL (9-23); Calcium 8.6 mg/dL (8.7-10.4); HDL Cholesterol 37 mg/dL (40-59); Triglycerides 161 mg/dL (< 150)
[2025-01-12 10:36] LABS: Prothrombin Time 46.4 sec (9.3-11.8)
[2025-01-12 10:50] LABS: Urine Protein, UAD 1+ (Negative)
[2025-01-12 11:03] LABS: INR 5.15 (0.9-1.15)
== END 2025-01-12 17:00 | disposition home or self-care (01) ==
LOC: LAB 09:44
PROVIDERS: ATTEND Nurse Practitioner
DX: I10 Essential (primary) hypertension (principal); E78.5 Hyperlipidemia, unspecified; R73.9 Hyperglycemia, unspecified; Z79.01 Long term (current) use of anticoagulants
CPT/HCPCS: 36415; 80053; 80061; 81001; 83036; 84443; 85025; 85610